=== PATIENT | female | born 1990 | race African-American/Black ===

== ENCOUNTER 2017-07-28 20:51 | Emergency (ER) | payer MEDICARE, MEDICAID ==
[~2017-07-28] VITALS: Ht 160 cm; Wt 47.0 kg
[~2017-07-28 20:51] MED LIST: CARV25TA47 PO; CHOL100044 PO; CINA30 PO; DOXE4VIA IV; EPOE10004 SUBCUT; HYDR-4134 PO; HYDR200T35 PO; LEVE1000 PO; LEVE10006 PO; ONDA4TAB5 PO; PANT40TA4 PO; PRED10TA PO; [UNRECOGNIZED DRUG - CODE] PO
[2017-07-28] MEDS ORDERED: ALBUTEROL (0.083%) 2.5MG/3ML NEB HHN STA (21:17)
[2017-07-28] MEDS ORDERED: IPRATROPIUM BROMIDE (0.02%) 0.5MG/2.5ML NEB HHN STA (21:17)
[2017-07-28] MEDS ORDERED: LEVOFLOXACIN 750MG PREMIX 150 ML IV STA (21:17)
[2017-07-28] MEDS ORDERED: METHYLPREDNISOLONE SOD SUCC 125 MG/2 ML VIAL IV STA (21:17)
[2017-07-28] MEDS ORDERED: MAGNESIUM 2 G PREMIX 50 ML IV ONE (21:30)
[2017-07-28] MEDS ORDERED: ASPIRIN 81MG TABLET PO ONE (21:30)
[2017-07-28 22:00] LABS: HEMATOCRIT. 30.9 % (36.0-48.0); HEMOGLOBIN. 10.1 g/dL (12.0-16.0); MEAN CORPUSCULAR HEMOGLOBIN 34.6 pg (28.0-32.0); MEAN CORPUSCULAR VOLUME 106.2 fL (81.0-99.0); MEAN PLATELET VOLUME 9.6 fl (7.4-10.4); PLATELET 121 x1000/uL (130-400); RED BLOOD CELL COUNT 2.91 mill/uL (4.2-5.4); RED CELL DISTRIBUTION WIDTH 16.6 % (11.6-14.6)
[2017-07-28 22:05] LABS: INR 1.1; PROTHROMBIN TIME 11.6 sec (9.4-11.6)
[2017-07-28 22:16] LABS: CARBON DIOXIDE 24 mEq/L (21-32); CHLORIDE 98 mEq/L (98-107); ETHANOL BLOOD < 10 mg/dL
[2017-07-28 22:17] LABS: TROPONIN I < 0.02 ng/mL (0.00-0.04)
[2017-07-28 22:28] LABS: PLATELET ESTIMATE SLIGHTLY DECREASED
[2017-07-28 23:45] VITALS: BP 158/86
== END 2017-07-29 00:36 | disposition home or self-care (01) ==
LOC: ER 21:09
DX: R06.00 Dyspnea, unspecified (principal); D50.9 Iron deficiency anemia, unspecified; M32.9 Systemic lupus erythematosus, unspecified; I10 Essential (primary) hypertension; Z88.6 Allergy status to analgesic agent; Z88.0 Allergy status to penicillin; Z79.01 Long term (current) use of anticoagulants
CPT/HCPCS: 36415; 71010; 80053; 83605; 83690; 83880; 84484; 85025; 85610; 87040; 93005; 94640; 99285; G0482; J7611

== ENCOUNTER 2018-09-30 12:50 | Emergency (ER) | payer MEDICARE, MEDICAID ==
[~2018-09-30] VITALS: Ht 162.6 cm; Wt 55.0 kg
[~2018-09-30 12:50] MED LIST changes: +WARF7.5T48 PO; -[UNRECOGNIZED DRUG - CODE] PO
[2018-09-30] MEDS ORDERED: ACETAMINOPHEN WITH CODEINE 300/30MG TABLET PO STA (15:58)
[2018-09-30 17:28] LABS: HEMATOCRIT. 36.2 % (36.0-48.0); MEAN CORPUSCULAR HEMOGLOBIN 35.1 pg (28.0-32.0); MEAN CORPUSCULAR VOLUME 105.3 fL (81.0-99.0); MEAN PLATELET VOLUME 8.5 fl (7.4-10.4); PLATELET 171 x1000/uL (130-400); RED BLOOD CELL COUNT 3.44 mill/uL (4.2-5.4); RED CELL DISTRIBUTION WIDTH 15.8 % (11.6-14.6)
[2018-09-30 17:29] LABS: CHLORIDE 97 mEq/L (98-107)
[2018-09-30 17:30] LABS: INR 1.2; PROTHROMBIN TIME 11.6 sec (9.1-11.1)
[2018-09-30 17:33] LABS: HCG SCREEN NEGATIVE
[2018-09-30 17:56] LABS: PLATELET ESTIMATE NORMAL
[2018-09-30 18:17] VITALS: BP 128/83
== END 2018-09-30 18:30 | disposition home or self-care (01) ==
LOC: ER 12:50
DX: M79.18 Myalgia, other site (principal); I12.0 Hypertensive chronic kidney disease with stage 5 chronic kidney disease or end stage renal disease; N18.6 End stage renal disease; Z99.2 Dependence on renal dialysis; Z86.73 Personal history of transient ischemic attack (TIA), and cerebral infarction without residual deficits; Z79.899 Other long term (current) drug therapy; Z88.0 Allergy status to penicillin; Z88.6 Allergy status to analgesic agent; Z88.8 Allergy status to other drugs, medicaments and biological substances
CPT/HCPCS: 36415; 84703; 93005; 99284

== ENCOUNTER 2020-03-07 17:23 | Emergency (ER) | payer MEDICARE, MEDICAID ==
[~2020-03-07] VITALS: Ht 160 cm; Wt 48.0 kg
[2020-03-07 17:24] VITALS: BP 142/102
== END 2020-03-07 19:05 | disposition left against medical advice (07) ==
LOC: ER 17:29
DX: R07.89 Other chest pain (principal); I13.11 Hypertensive heart and chronic kidney disease without heart failure, with stage 5 chronic kidney disease, or end stage renal disease; N18.6 End stage renal disease; E78.00 Pure hypercholesterolemia, unspecified; Z99.2 Dependence on renal dialysis; Z89.512 Acquired absence of left leg below knee; Z89.511 Acquired absence of right leg below knee; Z88.6 Allergy status to analgesic agent; Z79.01 Long term (current) use of anticoagulants; Z88.0 Allergy status to penicillin
CPT/HCPCS: 99283

== ENCOUNTER 2020-11-21 11:35 | Emergency (ER) | payer MEDICARE, MEDICAID ==
[~2020-11-21] VITALS: Ht 160 cm; Wt 42.0 kg
[~2020-11-21 11:35] MED LIST changes: -PANT40TA4 PO; +PANT40TA51 PO
[2020-11-21 13:51] VITALS: BP 130/85
== END 2020-11-21 13:54 | disposition left against medical advice (07) ==
LOC: ER 11:35
DX: G40.909 Epilepsy, unspecified, not intractable, without status epilepticus (principal); E11.22 Type 2 diabetes mellitus with diabetic chronic kidney disease; I13.11 Hypertensive heart and chronic kidney disease without heart failure, with stage 5 chronic kidney disease, or end stage renal disease; N18.6 End stage renal disease; M32.9 Systemic lupus erythematosus, unspecified; E78.00 Pure hypercholesterolemia, unspecified; Z99.2 Dependence on renal dialysis; Z88.6 Allergy status to analgesic agent; Z88.0 Allergy status to penicillin
CPT/HCPCS: 71045; 99284

== ENCOUNTER 2022-05-15 12:59 | Inpatient (IN) | payer MEDICARE, MEDICAID ==
[~2022-05-15] VITALS: Ht 160 cm; Wt 44.5 kg
[2022-05-15] MEDS ORDERED: MORPHINE SULFATE 4 MG/ML CPJ (NOT FOR IM USE) IV NR (14:30)
[2022-05-15 15:04] LABS: BASOPHILS % 0.4 % (0.0-2.0); EOSINOPHILS % 4.6 % (0.0-5.0); HEMATOCRIT. 30.1 % (36.0-48.0); HEMOGLOBIN. 10.2 g/dL (12.0-16.0); LYMPHOCYTES % 14.2 % (20.0-50.0); MEAN CORPUSCULAR HEMOGLOBIN 33.9 pg (28.0-32.0); MEAN CORPUSCULAR VOLUME 100.7 fL (81.0-99.0); MONOCYTES % 14.6 % (2.0-8.0); NEUTROPHILS % 66.2 % (40.0-76.0); PLATELET 219 x1000/uL (130-400); RED CELL DISTRIBUTION WIDTH 17.4 % (11.6-14.6)
[2022-05-15 15:13] LABS: CHLORIDE 98 mEq/L (98-107)
[2022-05-15 20:00] VITALS: BP 106/63
[2022-05-15] MEDS ORDERED: ZOLPIDEM TARTRATE 5MG TABLET PO PRN (22:45)
[2022-05-15] MEDS ORDERED: ACETAMINOPHEN 325MG TABLET PO PRN ×2 (22:45)
[2022-05-15] MEDS ORDERED: MAGNESIUM HYDROXIDE 400MG/5ML 30ML UDC PO PRN (22:45)
[2022-05-15] MEDS ORDERED: MAGNESIUM/ALUMINUM HYDROXIDE/SIMETHICONE 30ML UDC PO PRN ×2 (22:45)
[2022-05-15] MEDS ORDERED: DIPHENHYDRAMINE 50MG/ML VIAL IV NR (22:45)
[2022-05-15] MEDS ORDERED: HYDROMORPHONE HCL/PF 2MG/ML CPJ IV PRN (22:45)
[2022-05-15] MEDS ORDERED: ONDANSETRON HCL 4MG/2ML INJ IV PRN (22:45)
[2022-05-15] MEDS: HYDROMORPHONE HCL/PF 2MG/ML CPJ IV NR (22:59)
[2022-05-15 23:00] VITALS: BP 106/63
[2022-05-15] MEDS ORDERED: NALOXONE HCL 0.4MG/ML VIAL IV PRN (23:00)
[2022-05-15] MEDS: LEVETIRACETAM 500MG TABLET PO SCH (23:11)
[2022-05-15] MEDS: OXYCODONE HCL 20MG TABLET SR 12HR PO SCH (23:12)
[2022-05-15] MEDS ORDERED: KEPP500 MT (23:52)
[2022-05-15] MEDS ORDERED: B50 GT (23:52)
[2022-05-15] MEDS ORDERED: OXYC-582 PO (23:52)
[2022-05-16] VITALS: BP 97/66
[2022-05-16] MEDS: DIPHENHYDRAMINE 50MG/ML VIAL IV PRN ×5 (03:16→20:55)
[2022-05-16 04:00] VITALS: BP 121/82
[2022-05-16] MEDS: HYDROMORPHONE HCL/PF 2MG/ML CPJ IV NR (04:28)
[2022-05-16] MEDS: SODIUM CHLORIDE 0.9% INJ 3ML FLUSH IVF SCH ×3 (05:51→20:55)
[2022-05-16 07:00] LABS: BASOPHILS % 0.7 % (0.0-2.0); EOSINOPHILS % 7.2 % (0.0-5.0); HEMATOCRIT. 30.4 % (36.0-48.0); HEMOGLOBIN. 10.1 g/dL (12.0-16.0); LYMPHOCYTES % 15.1 % (20.0-50.0); MEAN CORPUSCULAR HEMOGLOBIN 33.8 pg (28.0-32.0); MEAN CORPUSCULAR VOLUME 101.3 fL (81.0-99.0); MEAN PLATELET VOLUME 9.2 fl (7.4-10.4); MONOCYTES % 13.2 % (2.0-8.0); NEUTROPHILS % 63.8 % (40.0-76.0); PLATELET 239 x1000/uL (130-400); RED BLOOD CELL COUNT 3.01 mill/uL (4.2-5.4)
[2022-05-16 08:00] VITALS: BP 93/65
[2022-05-16] MEDS: OXYCODONE HCL 20MG TABLET SR 12HR PO SCH ×2 (08:43→20:55)
[2022-05-16] MEDS: LEVETIRACETAM 500MG TABLET PO SCH ×2 (08:43→20:53)
[2022-05-16 08:46] LABS: PHOSPHORUS 6.7 mg/dL (2.5-4.9)
[2022-05-16 12:00] VITALS: BP 90/61
[2022-05-16 16:00] VITALS: BP 92/62
[2022-05-16 18:04] LABS: HEPATITIS B SURFACE ANTIGEN NEGATIVE
[2022-05-16 20:00] VITALS: BP 94/55
[2022-05-17] VITALS: BP 111/69
[2022-05-17] MEDS: SODIUM CHLORIDE 0.9% INJ 3ML FLUSH IVF SCH ×3 (01:39→21:57)
[2022-05-17] MEDS: DIPHENHYDRAMINE 50MG/ML VIAL IV PRN ×3 (01:39→18:12)
[2022-05-17 04:00] VITALS: BP 106/78
[2022-05-17 08:00] VITALS: BP 100/53
[2022-05-17] MEDS: LEVETIRACETAM 500MG TABLET PO SCH ×2 (08:37→21:57)
[2022-05-17] MEDS: OXYCODONE HCL 20MG TABLET SR 12HR PO SCH (08:37)
[2022-05-17 12:00] VITALS: BP 108/55
[2022-05-17 16:00] VITALS: BP 98/50
[2022-05-17 20:00] VITALS: BP 90/52
[2022-05-17 20:57] LABS: BASOPHILS % 0.7 % (0.0-2.0); EOSINOPHILS % 5.2 % (0.0-5.0); HEMATOCRIT. 31.5 % (36.0-48.0); HEMOGLOBIN. 10.5 g/dL (12.0-16.0); LYMPHOCYTES % 16.4 % (20.0-50.0); MEAN CORPUSCULAR HEMOGLOBIN 34.1 pg (28.0-32.0); MEAN PLATELET VOLUME 9.2 fl (7.4-10.4); MONOCYTES % 12.6 % (2.0-8.0); NEUTROPHILS % 65.1 % (40.0-76.0); PLATELET 192 x1000/uL (130-400); RED BLOOD CELL COUNT 3.09 mill/uL (4.2-5.4); RED CELL DISTRIBUTION WIDTH 17.3 % (11.6-14.6)
[2022-05-17 21:18] LABS: PHOSPHORUS 5.6 mg/dL (2.5-4.9)
[2022-05-18] VITALS: BP 92/54
[2022-05-18] MEDS: SODIUM CHLORIDE 0.9% INJ 3ML FLUSH IVF SCH (04:34)
[2022-05-18 08:00] VITALS: BP 90/50
[2022-05-18] MEDS: LEVETIRACETAM 500MG TABLET PO SCH (09:25)
[2022-05-18] MEDS ORDERED: MIDODRINE HCL 5MG TABLET PO NR (09:45)
[2022-05-18 11:44] VITALS: BP 95/57
== END 2022-05-18 12:26 | disposition home or self-care (01) | DRG 312 ==
LOC: ER 12:59 → 8WST 16:57 → EDBEDREQ 17:00 → ENRESERV 19:30
PROVIDERS: ADMIT Internal Medicine; ATTEND Internal Medicine
PROC: 5A1D70Z Performance of Urinary Filtration, Intermittent, Less than 6 Hours Per Day (ICD-10-PCS; principal; 2022-05-16)
DX: I95.3 Hypotension of hemodialysis (principal); N18.6 End stage renal disease; I12.0 Hypertensive chronic kidney disease with stage 5 chronic kidney disease or end stage renal disease; N25.81 Secondary hyperparathyroidism of renal origin; M87.9 Osteonecrosis, unspecified; G40.909 Epilepsy, unspecified, not intractable, without status epilepticus; D63.1 Anemia in chronic kidney disease; J06.9 Acute upper respiratory infection, unspecified; M32.9 Systemic lupus erythematosus, unspecified; M32.14 Glomerular disease in systemic lupus erythematosus; Z88.0 Allergy status to penicillin; Z99.2 Dependence on renal dialysis; Z82.49 Family history of ischemic heart disease and other diseases of the circulatory system; Z88.8 Allergy status to other drugs, medicaments and biological substances; Z89.519 Acquired absence of unspecified leg below knee
CPT/HCPCS: 36415; 71045; 80048; 80053; 83735; 84100; 85025; 86705; 86709; 86803; 87340; 93005; 99285; J1170; J1200; J2270; J2405

== ENCOUNTER 2025-06-16 14:16 | Emergency (ER) | payer MEDICARE, MEDICAID ==
[~2025-06-16] VITALS: Ht 157.5 cm; Wt 61.0 kg
[~2025-06-16 14:16] MED LIST changes: -CARV25TA47 PO; -CHOL100044 PO; -CINA30 PO; +DIVA250T45 MT; -DOXE4VIA IV; -EPOE10004 SUBCUT; -HYDR-4134 PO; -HYDR200T35 PO; -LEVE1000 PO; -LEVE10006 PO; +MIDO5TAB4 PO; -ONDA4TAB5 PO; -PANT40TA51 PO; -PRED10TA PO; -WARF7.5T48 PO
[2025-06-16 14:17] VITALS: TEMP 36.6; O2SAT 98
[2025-06-16 15:20] VITALS: BP 174/109; PULSE 67; RESP 15; O2SAT 98
[2025-06-16] MEDS: HYDRALAZINE HCL 10MG TABLET PO ONE (15:30)
== END 2025-06-16 15:41 | disposition home or self-care (01) ==
LOC: ER 14:16
DX: I13.2 Hypertensive heart and chronic kidney disease with heart failure and with stage 5 chronic kidney disease, or end stage renal disease (principal); I50.9 Heart failure, unspecified; N18.6 End stage renal disease; I48.91 Unspecified atrial fibrillation; E78.5 Hyperlipidemia, unspecified; I25.10 Atherosclerotic heart disease of native coronary artery without angina pectoris; Z99.2 Dependence on renal dialysis; Z95.5 Presence of coronary angioplasty implant and graft; Z98.890 Other specified postprocedural states; Z89.519 Acquired absence of unspecified leg below knee; Z79.899 Other long term (current) drug therapy; Z88.0 Allergy status to penicillin; Z88.8 Allergy status to other drugs, medicaments and biological substances; Z88.6 Allergy status to analgesic agent; Z88.1 Allergy status to other antibiotic agents
CPT/HCPCS: 93005; 99283; A4606